=== PATIENT | female | born 2005 | race Caucasian/White ===

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

== ENCOUNTER 2025-04-20 15:46 | Outpatient (CLI) | payer OTHER, SELFPAY ==
[2025-04-20 16:12] LABS: Hematocrit 41.5 % (35.0-49.0); Hemoglobin 14.3 g/dL (12.0-15.0); Immature Granulocyte Percent A 0.1 % (0.0-0.0); Lymphocytes Absolute Auto 2.54 K/mm3 (1.10-4.50); Mean Corpuscular HGB Conc 34.5 g/dL (32-36); Mean Corpuscular Hemoglobin 32.4 pg (27.0-31.0); Mean Corpuscular Volume 94.1 fL (78.0-102.0); Nucleated Red Blood Cells Absolute Auto 0.00 K/mm3 (0.00-0.00); Nucleated Red Blood Cells Perc 0.0 % (0-0.0); Platelet Count Result 228 K/mm3 (150-420); Red Blood Count 4.41 M/mm3 (4.20-5.40); White Blood Count 7.4 K/mm3 (4.8-10.8)
[2025-04-20 16:19] LABS: Add Urine Microscopic? YES; Appearance Urine Clear (Clear); Glucose Urine UA Negative (Negative); Leukocyte Esterase Ur Trace (Negative); Nitrate Urine Negative (Negative); Specific Grav Ur 1.015 (1.010-1.020)
[2025-04-20 17:08] LABS: Alanine Aminotransferase 31 U/L (6-35); Albumin Level 4.7 g/dL (3.5-5.1); Alkaline Phosphatase 53 U/L (38-126); Anion Gap 8 mmol/L (4-12); Aspartate Amino Transferase 29 U/L (14-36); Bilirubin,Total 1.1 mg/dL (0.2-1.3); Blood Urea Nitrogen 11 mg/dL (7-17); CRP < 0.5 mg/dL (<1.0); Calcium 9.9 mg/dL (8.4-10.2); Carbon Dioxide 27 mmol/L (22-30); Chloride 106 mmol/L (98-107); Estimated Glomerular Filt Rate > 60; Glucose 111 mg/dL (65-110); Osmolality Calculated 292 mOsm/kg (285-295); Potassium 4.2 mmol/L (3.4-5.0); Sodium 141 mmol/L (137-145); Total Protein 7.0 g/dL (6.3-8.2)
== END 2025-04-20 15:47 | disposition home or self-care (01) ==
LOC: CHSLAB 15:49
PROVIDERS: PCP Internal Medicine; Visit Provider Internal Medicine
DX: M54.50 Low back pain, unspecified (principal); M25.562 Pain in left knee
CPT/HCPCS: 36415; 80053; 81001; 85025; 86140

== ENCOUNTER 2025-07-14 15:30 | Outpatient (RCR) | payer OTHER, SELFPAY ==
--- NOTE | 2025-05-23 12:16 | OPREHPOC ---
Outpatient Therapy Plan of Care This is a Multidisciplinary Plan of Care that may contain components documented by all disciplines (PT, OT, and ST.) PT Problem 1 PT Problem #1 Knowledge Deficit PT Goal 1 Goal / Goal Update [place] with HEP Target Visit 4 PT Goal 2 Goal / Goal Update Report no back pain greater than 2/10 Target Visit 8 PT Problem 2 PT Problem #2 Impaired Strength PT Goal 1 Goal / Goal Update 1. Improve rosetta hip abduction strength to 4/5 to improve lateral stability with ADLs and lifting 2. Demonstrate ability to maintain core control through but core progression x 10 reps to improve lower abdominal stabilization Target Visit 8 PT Problem 3 PT Problem #3 Impaired Functional Mobility PT Goal 1 Goal / Goal Update 1. Demonstrate proper squat lift of 25# for integration of hips and protection of back during lifting activity Target Visit 8
--- NOTE | 2025-05-23 12:16 | PTOPEVAL1 ---
Assessment and note entered by Peter Mcqueen, PT Evaluation Information Assessment Status Evaluation ICD-10 Condition Codes (PT) Pain in low back M54.50 Onset January 2025 Subjective Information Reports that symptoms started about 4 months ago and started as a tingling that progressed to pain. Pain is all isolated to the back. Pain moves up and down the spine and occasionally rests in the upper back. She denies pain at night but did have pain last night. Reports that mornings she typically does fairly well but pain gets worse with activity. Also has history of knee pain. She is a side sleeper. Reported Pain Level Pain Score 6: Self Report Assessment PT Clinical Summary Patient presents with gross spinal pain associated with activity. Pain is inconsistent and presents as mechanical at this time based on varying location and intensity. She will benefit from skilled therapy to address postural weakness, hip weakness, core weakness, and spinal mobility to correct ergonomics, body mechanics, and reduce pain with work and home related activity. Plan of Care Interventions Electrical Stimulation,Manual Therapy,Neuro Re- education,Therapeutic Activities,Therapeutic Exercise PT Services Indicated Yes Treatment Frequency and 1-2x/week for 8 visits Duration These treatments will address the objective and functional deficits as defined above. The patient will be advanced safely and appropriately in order for the patient to progress towards his/her prior level of function. Additional exercises will be introduced and as well as a comprehensive home exercise program upon discharge, if needed, ?to ensure carryover of functional gains achieved in the clinic. This treatment plan has been reviewed and agreement upon by the patient.
--- NOTE | 2025-07-14 16:20 | OPREHPOC ---
Outpatient Therapy Plan of Care This is a Multidisciplinary Plan of Care that may contain components documented by all disciplines (PT, OT, and ST.) PT Problem 1 PT Problem #1 Knowledge Deficit PT Goal 1 Goal / Goal Update [place] with HEP Target Visit 4 Progress Met PT Goal 2 Goal / Goal Update Report no back pain greater than 2/10 Target Visit 8 Progress Met PT Problem 2 PT Problem #2 Impaired Strength PT Goal 1 Goal / Goal Update 1. Improve rosetta hip abduction strength to 4/5 to improve lateral stability with ADLs and lifting 2. Demonstrate ability to maintain core control through but core progression x 10 reps to improve lower abdominal stabilization Target Visit 8 Progress Met PT Problem 3 PT Problem #3 Impaired Functional Mobility PT Goal 1 Goal / Goal Update 1. Demonstrate proper squat lift of 25# for integration of hips and protection of back during lifting activity Target Visit 8 Progress Met
--- NOTE | 2025-07-14 16:20 | PTOPDC ---
Assessment and note entered by Peter Mcqueen, PT Evaluation Information Assessment Status Discharge ICD-10 Condition Codes (PT) Pain in low back M54.50 Onset January 2025 Subjective Information Patient reports that overall she is doing much better. She moved up at work and is now able to avoid a lot of the heavy lifting that she was doing before. Overall feels ready for discharge at this time. Reported Pain Level Pain Score 0: Self Report Assessment PT Clinical Summary Patient has met all goals for therapy and is suitable for discharge to [facility] at this time. Independent with exercise and demonstrates understanding of need for independent continuation . Plan of Care PT Services Indicated Yes
== END 2025-07-15 09:19 | disposition home or self-care (01) ==
LOC: ANHPT 15:30
PROVIDERS: PCP Internal Medicine; Visit Provider Internal Medicine
DX: M54.50 Low back pain, unspecified (principal)
CPT/HCPCS: 97014; 97110; 97140; 97161; 97530; G0283